=== PATIENT | female | born 1945 | race Caucasian/White ===

== ENCOUNTER 2021-12-20 13:14 | Emergency (ER) | payer MEDICARE, SELFPAY ==
--- NOTE | ~2021-12-20 | US_ITS ---
US venous doppler [facility] DATE: 12/20/2021 14:49 INDICATION: Left calf pain TECHNIQUE: Real-time and color flow imaging and Doppler analysis of the veins of the left lower extre mity COMPARISON: None FINDINGS: The left greater saphenous vein is patent. There is spontaneous and phasic flow and normal augmentation and color flow signal and normal compression of the deep veins of the left leg. IMPRESSION: No evidence of deep venous thrombosis of left leg Reviewed, dictated and finalized at [facility]. Reviewed, dictated and finalized at location B.
[2021-12-20 13:16] VITALS: BP 111/86; PULSE 76; RESP 16; TEMP 37.1; O2SAT 99
--- NOTE | 2021-12-20 14:19 | ED.EXTPRO ---
HPI - Extremity Problem General Chief complaint: Extremity Problem,Nontraumatic Stated complaint: left leg pain Time Seen by Provider: 12/20/21 13:21 History of Present Illness HPI Narrative: 76-year-old female presents to the emergency room today for complaints of pain in the left leg. It starts in the left sciatic area and goes down her leg into her calf area. She reports that she has the most pain in her calf area. She has had a very difficult time getting comfortable and has not been able to sleep very much because of the pain. She has been taking Tylenol at home for the pain but says that it has not helped very much. Her last dose was yesterday evening. She denies any numbness or tingling. No extremity weakness. No low back pain. She does have problems with chronic back pain due to scoliosis. Related Data Allergies Allergy/AdvReac Type Severity Reaction Status Date / Time levofloxacin [From Levaquin] Allergy Unknown Verified 12/20/21 13:29 tetanus and diphtheria Allergy Anaphylactic Verified 12/20/21 13:29 toxoids Shock Review of Systems Review of Systems: CONSTITUTIONAL: Denies fever, chills, or sweats. EYES: Denies visual changes, redness, or discharge. ENT: Denies rhinorrhea, congestion, sore throat, or otalgia. CARDIOVASCULAR: Denies chest pain, palpitations, or edema. RESPIRATORY: Denies cough or dyspnea. GASTROINTESTINAL: Denies abdominal pain, nausea, vomiting, or diarrhea. GENITOURINARY: Denies dysuria or hematuria. SKIN: Denies rash or itching. MUSCULOSKELETAL: as per HPI NEUROLOGIC: Denies headache, numbness, dizziness, or weakness. PSYCHIATRIC: Denies anxiety or depression. Exam Narrative: GENERAL: Well-appearing, well-nourished, and in no acute distress. HEAD: Normocephalic, atraumatic. NECK: Supple. No adenopathy or masses. CHEST: Clear to auscultation. No respiratory distress. No wheezes rales or rhonchi HEART: Regular rate and rhythm. No murmur heard. Normal peripheral pulses. ABDOMEN: Soft, nontender, nondistended, normal active bowel sounds. EXTREMITIES: Tenderness with palpation over the left SI joint, posterior thigh and posterior calf. No extremity swelling. No erythema. SKIN: Warm, dry, no rash. NEURO: No focal deficits. Alert and oriented x3. PSYCH: Normal mood and affect. Course Vital Signs Vital signs: Vital Signs Temperature 37.1 C 12/20/21 13:16 Pulse Rate 76 12/20/21 13:16 Respiratory Rate 16 12/20/21 13:16 Blood Pressure 111/86 12/20/21 13:16 Pulse Oximetry 99 12/20/21 13:16 Oxygen Delivery Room Air 12/20/21 13:16 Temperature 37.1 C 12/20/21 13:16 Pulse Rate 76 12/20/21 13:16 Respiratory Rate 16 12/20/21 13:16 Blood Pressure 111/86 12/20/21 13:16 Pulse Oximetry 99 12/20/21 13:16 Oxygen Delivery Room Air 12/20/21 13:16 MDM - Extremity (Nontraumatic) Differential Diagnosis Differential diagnosis: Likely deep vein thrombosis of lower extremity and other (sciatica, SI joint dysfunction) Imaging Data Radiologist's impression: US venous doppler LE DATE: 12/20/2021 14:49 INDICATION: Left calf pain? TECHNIQUE: Real-time and color flow imaging and Doppler analysis of the veins of the left lower extremity? COMPARISON: None? FINDINGS: The left greater saphenous vein is patent. There is spontaneous and phasic flow and normal augmentation and color flow signal and normal compression of the deep veins of the left leg.? IMPRESSION: No evidence of deep venous thrombosis of left leg? Discharge Plan Discharge Clinical Impression: Sciatica of left side Patient Disposition: Home, Self-Care Condition: Stable Instructions: Antibiotic Form, Sciatica (ED) Additional Instructions: Take Tylenol and tramadol as needed for pain. Prednisone as prescribed. Follow-up with your primary care provider in 2 to 3 days for recheck. Prescriptions: New prednisone 20 mg tablet 20 mg PO DAILY 5 Days Qty: 5 0RF tramado
--- NOTE | 2021-12-20 14:36 | PC.NURSE ---
Pt in US
[2021-12-20] MEDS: traMADol HCL (*CRX) 50 MG TABLET PO (14:46)
[2021-12-20] MEDS: ACETAMINOPHEN 325 MG TABLET 650 MG PO (14:46)
== END 2021-12-20 15:36 | disposition home or self-care (01) ==
PROVIDERS: Emergency Provider Nurse Practitioner Family; PCP Internal Medicine
DX: M54.32 Sciatica, left side (principal)
CPT/HCPCS: 93971; 99284; A9270

== ENCOUNTER → 2022-03-03 13:34 | Outpatient (CLI) | payer MEDICARE, SELFPAY ==
--- NOTE | ~2022-03-03 | DEXA_ITS ---
Bone Density Report Name: CINDA PERAZA Age: 76 Sex: Female Ethnicity: White Date of : 1945 Indication: postmenopausal; screening for osteoporosis; height loss; prior fracture; seizure disorder; asthma or emphysema; hysterectomy; Referring Provider: FERNANDA*, ARNIE Siegel Study: Bone densitometry was performed. Exam Date: March 03, 2022 Accession number: [id number] Bone Density: Region BMD T-score Z-score Classification AP Spine (L1-L4) 0.888 -1.4 1.1 Osteopenia Femoral Neck (Right) 0.536 -2.8 -0.7 Osteoporosis Total Hip (Right) 0.623 -2.6 -0.7 Osteoporosis World Health Organization criteria for BMD impression classify patients as: Normal (T-score at or above -1.0), Osteopenia (T-score between -1.0 and -2.5), or Osteoporosis (T-score at or below -2.5). 10-year Fracture Risk: FRAX not reported because: Some T-score for Spine Total or Hip Total or Femoral Neck at or below -2.5 Prior hip or vertebral fracture Clinical Information Provided by Patient: Have had a previous hip or vertebral fracture Has had a low trauma fracture Has used the following medications: Calcium, MULT VIT Has the following medical conditions: Any Seizure Disorders, Asthma or Emphysema, Hysterectomy Patient maximum height was 63 Menopause Age: 55 No regular weight bearing exercise Onset of menses at age 13 Number of children 0 Impression: The patient has established osteoporosis, based on the Right Femoral Neck T-score and the existence of a prior fracture. The patient has risk factors, including: previous fracture. Discussion: HIGH RISK OF FRACTURE. BONE DENSITY IS UNDESIRABLY LOW AT ONE OR MORE SKELETAL SITES, CONSISTENT WITH POSTMENOPAUSAL OSTEOPOROSIS. This patient's lowest T-score, in a patient who has previously fractured, meets the World Health Organization's (WHO) criteria for severe osteoporosis. In untreated patients, the risk of osteoporotic fracture increases approximately two-fold for each 1.0 SD decrease in T-score. Low bone density is not the only risk factor for fracture; also consider factors such as patient's age, frailty or poor health, risk of falling, risk of injury, previous osteoporotic fracture, family history of osteoporosis, cigarette smoking, low body weight, etc. Not everyone with low bone mineral density has osteoporosis; osteomalacia and other metabolic bone disorders should also be considered. Patients who have osteoporosis should be evaluated for specific diseases and conditions (secondary causes) that may cause or contribute to bone loss. The [place] [employer]ocrinologists (AACE) and National Osteoporosis Foundation (NOF) recommend pharmacologic intervention for all postmenopausal women with a previous hip or vertebral fracture and a T-score in this range. The patient should follow a healthful lifestyle (good nutrition with
== END ==
PROVIDERS: Visit Provider Internal Medicine
DX: M81.0 Age-related osteoporosis without current pathological fracture (principal); M85.88 Other specified disorders of bone density and structure, other site
CPT/HCPCS: 77080

== ENCOUNTER 2022-09-07 11:09 | Outpatient (CLI) | payer MEDICARE, SELFPAY ==
--- NOTE | 2022-09-07 14:31 | ECG_ITS ---
Measurements Intervals [place] Rate: 73 P: 82 CA: 236 QRS: 13 QRSD: 77 T: 57 QT: 362 QTc: 400 Interpretive Statements SINUS RHYTHM WITH FIRST DEGREE AV BLOCK WITH OCCASIONAL SUPRAVENTRICULAR PREMATURE COMPLEXES NO PREVIOUS ECG AVAILABLE FOR COMPARISON Electronically Signed On 09-07-2022 16:29:04 CDT by Tomas Alejandro M.D.
== END 2022-09-07 11:10 | disposition home or self-care (01) ==
PROVIDERS: PCP Internal Medicine; Visit Provider Urology
DX: E78.00 Pure hypercholesterolemia, unspecified (principal); Z01.818 Encounter for other preprocedural examination
CPT/HCPCS: 93005

== ENCOUNTER 2022-09-15 02:31 | Day surgery (SDC) | payer MEDICARE, SELFPAY ==
--- NOTE | 2022-09-04 12:46 | PC.NURSE ---
Report to the Outpatient Waiting Room, entrance under the green pavilion located off [facility], at time __0600 on date _09/15/22 . Planned Procedure Time: __0730 . Time changes happen often and if your time is changed the preop area will call you the afternoon before. - You and your visitor will be asked to self-screen and do not enter if you have any COVID symptoms. - A mask is optional within the hospital at this time. Patients may have clear liquids (water, carbonated beverages, clear teas, apple juice) until 3 hours prior to surgery with a maximum of 20 ounces. - No food from midnight until time of surgery - Infants may have breast milk until 4 hours before surgery, infant formula 6 hours prior to surgery. - Children will be allowed to drink immediately following surgery. If applicable, please bring a bottle or sippy cup to assist with drinking. Juice, water, soda, and popsicles are readily available. For infants on formula, please bring formula the day of surgery. Pacifiers are allowed. Take the following medications with a SIP of water the morning of surgery: __XCOPRI,LAMOTRIGINE,TOPIRAMATE ZONISAMIDE DO NOT STOP ANY OF YOUR OTHER PRESCRIPTION MEDICATIONS PRIOR TO SURGERY ?EXCEPT THE FOLLOWING Medications to discontinue per physician ALL VITAMINS/SUPPLEMENTS 3 DAYS PRE OP.LAST DOSE 09/12/22 Please no make-up, nail somali, hairspray, perfume, deodorant, or body powder the day of surgery. No jewelry (including any body piercings) or valuables the day of surgery, leave them at home. Please take a shower or bath the night before, or the morning of, surgery with an antibacterial soap. Wear comfortable, loose fitting clothing. Children are encouraged to wear pajamas. - Jewelry must be removed prior to entering the operating room. Rings and piercings that are not removed may be cut off. - The hospital will not accept responsibility for valuables. - Please leave all valuables, including medications, at home the day of surgery. If you are going home after surgery, a licensed motor coach bus driver must drive you home. - NO public transportation without another adult if you receive anesthesia. - We recommend that an adult stay with you for 24 hours following discharge. - We also recommend that you do not drive, make important decision, drink alcoholic beverages, or take any drugs that were not prescribed by your health care provider for at least 24 hours after your discharge time. For Pediatric surgeries, we recommend two adults accompany the child home. Follow any additional instructions given to you from your surgeon. If you or anyone in your household have experienced Covid symptoms in the past week, please notify your surgeon or the nurse liaison at the phone number below for possible testing. Telephone instructions given to __PT'S SPOUSE JOSE and asked if any additional questions and then verbalized understanding. Patient advised to call surgeon office or pre surgery nurse liaison [phone] if any additional questions.
[2022-09-04 12:55] VITALS: BMI 22.6
--- NOTE | 2022-09-09 17:58 | PM.IMHP ---
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 She is tried vaginal estrogen cream. She would like this excised Review of Systems Review of Systems: All systems reviewed & are unremarkable except as noted in HPI and below PMFSH Past Medical History Medical History Hyperlipidemia Hypertension Hypoglycemic disorder Seizure disorder Surgical History Surgical History H/O shoulder replacement H/O: hysterectomy History of back surgery History of hip surgery Family History Family History Other Breast cancer Father Cerebrovascular accident Mother Heart disease Social History Social History Smoking packs per day: 1 Smoking cigarettes per day: 20.0 Years smoked: 20 Smoking pack-years: 20.00 Smoking status: Former smoker Tobacco type: cigarettes Smoking end date: 04/02/94 Alcohol intake: former Substance use: never Living arrangements: with family Additional living arrangements comments: Occupation/Education: retired Gender identity (if verbalized by the patient): Female Sexual Orientation (if Verbalized by the Patient): Straight or Heterosexual Spiritual care concerns: No Meds Home Medications and Allergies Home Medications Medication Instructions Recorded Confirmed Type calcium carbonate 600 mg-vitamin 1 tablet PO DAILY 09/04/22 09/04/22 History D3 10 mcg (400 unit) tablet (Calcium 600 + D(3)) cenobamate 12.5 mg (14)-25 mg (14) 1 ea PO DAILY 09/04/22 09/04/22 History tablets in a dose pack (Xcopri Titration Pack) cyclosporine 0.05 % eye drops in a 1 drp EACH EYE Q12H 09/04/22 09/04/22 History dropperette (Restasis) fexofenadine 180 mg tablet 180 mg PO DAILY 09/04/22 09/04/22 History lamotrigine 150 mg tablet 150 mg PO BID 09/04/22 09/04/22 History melatonin 3 mg capsule 3 mg PO HS PRN Insomnia 09/04/22 09/04/22 History multivit with 1 tablet PO DAILY 09/04/22 09/04/22 History nbzfciuk-wpdy-GY-lutein 8 mg iron-400 mcg-300 mcg tablet (Centrum Silver Women) pantoprazole 40 mg tablet,delayed 40 mg PO HS 09/04/22 09/04/22 History release pravastatin 40 mg tablet 40 mg PO HS 09/04/22 09/04/22 History topiramate 100 mg tablet 100 mg PO BID 09/04/22 09/04/22 History topiramate 50 mg tablet 50 mg PO BID 09/04/22 09/04/22 History zonisamide 100 mg capsule 300 mg PO BID 09/04/22 09/04/22 History Allergies Allergy/AdvReac Type Severity Reaction Status Date / Time levofloxacin [From Levaquin] Allergy Unknown Verified 09/04/22 12:18 tetanus and diphtheria Allergy Anaphylactic Verified 09/04/22 12:18 toxoids Shock Exam Narrative: near circumferential prolapse urethral mucosa Assessment and Plan Assessment and plan (1) Urethral prolapse: Code(s): N36.8 - Other specified disorders of urethra Status: Acute Assessment and Plan: excision of prolapsed urethral mucosa. Understands risks of bleeding, infection, damage to the urethra, incontinence, recurrence. She agrees to proceed
[2022-09-15] VITALS (7 sets, daily range): BP systolic 147–178; BP diastolic 74–92; PULSE 69–89; RESP 13–19; TEMP 36.1–37.2; O2SAT 98–100
--- NOTE | 2022-09-15 07:07 | WPDANESEPPF ---
Anes - Initial Pre Proc Eval Procedure: Operation Date: 09/15/22 07:30 Proposed Procedures p Excision of Urethral Prolapse Mucosa - Remberto Saunders MD s Cystoscopy - Remberto Saunders MD Date/Time: 09/15/22 07:07 Surgeon: Remberto Saunders MD Pre Op Diagnosis: Prolapse Urethral Mucosa Patient Data Age: 77 Gender: F Height: 1.5 m Weight: 51 kg Last Vital Signs Temp 37.2 C 09/15/22 06:13 Pulse 83 09/15/22 06:13 Resp 16 09/15/22 06:13 BP 166/80 H 09/15/22 06:13 Pulse Ox 100 09/15/22 06:13 O2 Del Method Room Air 09/15/22 06:13 Allergies Allergy/AdvReac Type Severity Reaction Status Date / Time tetanus and diphtheria Allergy Severe Anaphylactic Verified 09/15/22 06:16 toxoids Shock levofloxacin [From Levaquin] Allergy Intermediate Unknown Verified 09/15/22 06:16 Home Medications Medication Instructions Recorded Confirmed Type calcium carbonate 600 mg-vitamin 1 tablet PO DAILY 09/04/22 09/15/22 History D3 10 mcg (400 unit) tablet (Calcium 600 + D(3)) cenobamate 12.5 mg (14)-25 mg (14) 1 ea PO DAILY 09/04/22 09/15/22 History tablets in a dose pack (Xcopri Titration Pack) cyclosporine 0.05 % eye drops in a 1 drp EACH EYE Q12H 09/04/22 09/15/22 History dropperette (Restasis) fexofenadine 180 mg tablet 180 mg PO DAILY 09/04/22 09/15/22 History lamotrigine 150 mg tablet 150 mg PO BID 09/04/22 09/15/22 History melatonin 3 mg capsule 3 mg PO HS PRN Insomnia 09/04/22 09/15/22 History multivit with 1 tablet PO DAILY 09/04/22 09/15/22 History awfkmjcj-unyn-FY-lutein 8 mg iron-400 mcg-300 mcg tablet (Centrum Silver Women) pantoprazole 40 mg tablet,delayed 40 mg PO HS 09/04/22 09/15/22 History release pravastatin 40 mg tablet 40 mg PO HS 09/04/22 09/15/22 History topiramate 100 mg tablet 100 mg PO BID 09/04/22 09/15/22 History topiramate 50 mg tablet 50 mg PO BID 09/04/22 09/15/22 History zonisamide 100 mg capsule 300 mg PO BID 09/04/22 09/15/22 History Patient hx anesthesia problems: none Family hx anesthesia problems: none Results Review: All pre-operative results and documents have been reviewed as part of the pre-operative evaluation. [facility] Past Medical History Medical History (Updated 09/15/22 @ 07:08 by Tj Oleary DO) Hyperlipidemia Hypertension Hypoglycemic disorder PONV (postoperative nausea and vomiting) Seizure disorder last 08/28/2022 Surgical History Surgical History H/O shoulder replacement H/O: hysterectomy History of back surgery History of hip surgery Family History Family History Other Breast cancer Father Cerebrovascular accident Mother Heart disease Social History Social History Smoking packs per day: 1 Smoking cigarettes per day: 20.0 Years smoked: 20 Smoking pack-years: 20.00 Smoking status: Former smoker Tobacco type: cigarettes Smoking end date: 04/02/94 Alcohol intake: former Substance use: never Living arrangements: with family Additional living arrangements comments: Occupation/Education: retired Gender identity (if verbalized by the patient): Female Sexual Orientation (if Verbalized by the Patient): Straight or Heterosexual Spiritual care concerns: No Anes - Eval Final PreProcedure Day of Procedure 09/15/22 07:07 Patient weight: normal Heart: regular rate and rhythm Lungs: clear to auscultation and normal air movement Airway: Mallampati scale class II Neurological: alert and oriented Last oral intake: >/= 8 hours ASA classification: III Emergent: no Anesthetic plan: proceed Anesthesia type and monitoring: general LMA and standard monitoring Results Review: All pre-operative results and documents have been reviewed as part of the pre-operative evaluation. Informed Cons
--- NOTE | 2022-09-15 07:16 | WPDHPUPDATE1 ---
History and Physical Update Update Date/Time: 09/15/22 07:16 History and Physical has been reviewed, including an updated exam of the patient. There are NO changes in the patient's condition. Risks, benefits, and alternatives have been discussed and questions answered. Patient agrees to proceed with procedure.
[2022-09-15] MEDS: LACTATED RINGERS 1,000 ML 30 ML IV CONT (07:23)
[2022-09-15] MEDS: ceFAZolin 2 GM/D5W 50 ML 2 GM/50 ML BAG IVPB (07:33)
--- NOTE | 2022-09-15 08:13 | P.OP_ITS ---
Procedure Note - Detailed Date of Procedure 09/15/22 Pre-op Diagnosis Prolapse Urethral Mucosa Post-op Diagnosis Same Procedure Performed Excision of urethral prolapse Surgeon Remberto Saunders MD Anesthesia General Indications This is a woman with symptomatic prolapse urethral mucosa. She is on vaginal estrogen cream and she still has a bothersome urethral prolapse. She desires excision. She understands risks of bleeding, infection, recurrence, incontinence. She agrees to proceed Findings Near circumferential urethral prolapse Description of Procedure She was correctly identified. Informed consent obtained. She from the operating room. She was given general anesthesia. She was prepped and draped sterile fashion. She was given appropriate perioperative antibiotics. Time-out performed. I placed a [place] retractor. I placed a [place] catheter. Should near circumferential urethral prolapse. She has been on estrogen so it was not as significantly inflamed. I excised the urethral prolapse circumferentially. While excising I did interrupted 4-0 chromic sutures reapproximating vaginal mucosa to urethral mucosa. I completely excise the urethral prolapse. I closed mucosa to mucosa. Hemostasis was adequate. The urethra was patent. The [place] in [place] catheter removed. She was awakened transferred to PACU in stable condition. Estimated Blood Loss 15 Drains No Packing No Pathology Yes (Prolapsed urethral mucosa) Complications No immediate complications Condition Stable Disposition PACU
== END 2022-09-15 09:45 | disposition home or self-care (01) ==
PROVIDERS: PCP Internal Medicine; Visit Provider Urology
PROC: (CPT 53275; principal; 2022-09-15 07:30)
DX: N81.0 Urethrocele (principal); I10 Essential (primary) hypertension; E78.5 Hyperlipidemia, unspecified; G40.909 Epilepsy, unspecified, not intractable, without status epilepticus; Z87.891 Personal history of nicotine dependence
CPT/HCPCS: 57230; 88305; 93005; J0690; J1100; J2405; J2704; J3010; J7030; J7120

== ENCOUNTER → 2023-05-01 13:23 | Outpatient (CLI) | payer MEDICARE, SELFPAY ==
--- NOTE | ~2023-05-01 | MM_ITS ---
EXAMINATION: MM screening adal BI w [place] HISTORY: Screening TECHNIQUE: Craniocaudal and mediolateral oblique 3-D tomosynthesis images were obtained and synthetic 2-D images were generated. CAD analysis was submitted and interpreted. COMPARISON: 02/10/2019 BREAST PARENCHYMAL COMPOSITION: The breasts are heterogeneously dense, which may obscure small masses FINDINGS: There is no evidence of suspicious mass, calcification, or architectural distortion to sugg est malignancy in either breast. There has been no suspicious interval change. IMPRESSION: 1. No mammographic evidence of malignancy. 2. Recommend routine screening mammography in one year. BI-RADS Category 1: Negative Reviewed, dictated and finalized at location A. [employer]
== END ==
PROVIDERS: PCP Internal Medicine; Visit Provider Internal Medicine
DX: Z12.31 Encounter for screening mammogram for malignant neoplasm of breast (principal)
CPT/HCPCS: 77063; 77067